=== PATIENT | male | born 1990 | race Caucasian/White ===

== ENCOUNTER 2018-01-25 12:56 | Emergency (ER) | payer BC ==
[2018-01-25 13:07] VITALS: BP 152/93
--- NOTE | 2018-01-25 16:32 | Emergency Department Report ---
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 The pain is just underneath the scapula. Patient states it hurts to move also personally takes a deep breath. Patient denies any cough congestion fevers chills nausea vomiting. Patient states there was no direct trauma to this area. Severity scale (0 -10): 8 Quality: aching Consistency: constant Worsens With: movement - Related Data Previous Rx's Medication Instructions Recorded Last Taken Type Ibuprofen [Motrin] 800 mg PO Q8HR PRN #20 tablet 01/25/18 Unknown Rx methOCARBAMOL [Robaxin TAB] 500 mg PO Q6H PRN #15 tablet 01/25/18 Unknown Rx traMADol [Ultram] 50 mg PO Q6HR PRN #10 tablet 01/25/18 Unknown Rx Allergies Allergy/AdvReac Type Severity Reaction Status Date / Time No Known Allergies Allergy Verified 01/25/18 13:05 ED Review of Systems ROS: Stated complaint: BACK PAIN Other details as noted in HPI Comment: All other systems reviewed and negative ED Past Medical Hx - Past Medical History high cholesterol Family history: diabetes, hypertension ED Back Pain Physical Exam - Exam General: Vital signs noted. No distress. Alert and acting appropriately. Back/Abdomen: Yes Perithoracic Tenderness, No Abdominal Tenderness, No Perilumbar Tenderness, No Sacroiliac Tenderness, No Flank Tenderness, No Straight Leg Raise Pain Neuro: Yes Normal Sensation, Yes Normal DTR's, Yes Normal Gait, No Motor Weakness ED Course Vital Signs 01/25/18 13:05 Temperature 97.7 F Pulse Rate 68 Respiratory 16 Rate Blood Pressure 152/93 O2 Sat by Pulse 98 Oximetry ED Medical Decision Making - Medical Decision Making Shouldn't likely with muscle strain. Patient with clear lungs and do not suspect any lung pathology causing his pain. The patient will be given meds for symptomatic relief will be discharged home. Critical care attestation.: If time is entered above; I have spent that time in minutes in the direct care of this critically ill patient, excluding procedure time. ED Disposition Clinical Impression: Back strain Qualifiers: Encounter type: initial encounter Qualified Code(s): S39.012A - Strain of muscle, fascia and tendon of lower back, initial encounter Disposition: TO HOME OR SELFCARE Is pt being admited?: No Does the pt Need Aspirin: No Condition: Stable Instructions: Muscle Strain (ED) Referrals: PRIMARY CARE, [Primary Care Provider] - 3-5 Days Forms: Work/School Release Form(ED) Time of Disposition: 16:32
== END 2018-01-25 16:38 | disposition home or self-care (01) ==
LOC: ED 12:56
DX: S39.012A Strain of muscle, fascia and tendon of lower back, initial encounter (principal); E78.00 Pure hypercholesterolemia, unspecified; X50.0XXA Overexertion from strenuous movement or load, initial encounter; Y93.89 Activity, other specified; Y99.0 Civilian activity done for income or pay; Y92.69 Other specified industrial and construction area as the place of occurrence of the external cause
CPT/HCPCS: 99282